=== PATIENT | male | born 1990 | race Caucasian/White ===

== ENCOUNTER 2024-08-09 17:05 | Emergency (ER) | payer MEDICAID ==
[~2024-08-09] VITALS: Ht 167.6 cm; Wt 70.0 kg
[2024-08-09 17:42] VITALS: O2SAT 97
[2024-08-09] MEDS: ACETAMINOPHEN 325MG TABLET PO STA (18:44)
[2024-08-09] MEDS ORDERED: IBUP-2029 MT (21:10)
[2024-08-09 21:51] VITALS: BP 116/62; PULSE 61; RESP 18; TEMP 36.72516; O2SAT 97
== END 2024-08-09 21:53 | disposition home or self-care (01) ==
LOC: ER 17:05
DX: R51.9 Headache, unspecified (principal); F14.10 Cocaine abuse, uncomplicated; F12.10 Cannabis abuse, uncomplicated
CPT/HCPCS: 99284